=== PATIENT | male | born 1975 | race Caucasian/White ===

== ENCOUNTER 2017-03-20 06:33 | Emergency (ER) | payer BC ==
[~2017-03-20] VITALS: Ht 185.4 cm; Wt 102.1 kg
[2017-03-20 06:33] VITALS: BP 125/82; PULSE 129; RESP 16; TEMP 97.5; O2SAT 98
--- NOTE | 2017-03-20 06:33 | NUR ---
Placed in room 1. Placed on monitoring coordinator, blood pressure machine and pulse oximeter. To gown for exam. Side rails up. Report given to Kristine MAGALLANES.
--- NOTE | 2017-03-20 06:40 | NUR ---
Patient to ER C/O chest tightness since 2 am. Patient states that he has been sick for the past 2 weeks with unproductive cough and fever "on and off" for which he has been taking tylenol. Patient also C/O SOB. AAOx4, diminished lung sounds, tachycardia, skin lesions on chest, abdomen, back, extremities (Hx of psoriasis) no signs of skin infection, no signs of acute distress.
[2017-03-20] MEDS ORDERED: NACL 0.9% 1,000 ML IV ONE ×2 (06:43→06:45)
[2017-03-20] MEDS ORDERED: ASPIRIN 81 MG TAB.CHEW PO ONE (06:45)
[2017-03-20] MEDS ORDERED: PANTOPRAZOLE SODIUM 40 MG/VIAL (PROTONIX) IVP ONE (06:45)
--- NOTE | 2017-03-20 06:45 | NUR ---
# 20 gauge angiocath placed to RIGHT AC. Use of asceptic technique. Opsite placed over site. Blood return noted. Blood for lab drawn from site. Flushed with 10 cc of normal saline. No evidence of infiltration noted. Patient tolerated well.
[2017-03-20] MEDS ORDERED: ENAL10TA PO (06:53)
--- NOTE | 2017-03-20 06:53 | NUR ---
ER MD Pandya at bedside for evaluation
[2017-03-20] MEDS ORDERED: HYDR25TA4 PO (06:54)
[2017-03-20 07:01] LABS: HEMATOCRIT 42.5 % (36-54); HEMOGLOBIN 14.3 g/dL (14.0-18.0); MEAN CORPUSCULAR HEMOGLOBIN 30 pg (27-31); MEAN CORPUSCULAR HGB CONC 34 % (32-36); MEAN CORPUSCULAR VOLUME 88 fL (79.0-98.0); PLATELET COUNT (AUTO) 323 K/uL (130-430); RED BLOOD CELL COUNT(AUTO) 4.84 MIL/uL (4.2-6.2); RED CELL DISTRIBUTION WIDTH 11.6 % (9.0-15.0); WHITE BLOOD COUNT (AUTO) 20.6 K/uL (4.8-10.8)
--- NOTE | 2017-03-20 07:14 | NUR ---
RT at bedside for breathing treatment
[2017-03-20] MEDS ORDERED: IPRATROPIUM BROM 0.5 MG/2.5 ML VIAL.NEB (ATROVENT) INH ONE (07:15)
[2017-03-20] MEDS ORDERED: LORazepam 2 MG/ML VIAL (FOR ER USE) IVP ONE (07:15)
[2017-03-20] MEDS ORDERED: IPRATROPIUM/ALBUTEROL SULFATE 3 ML AMPUL.NEB INH ONE (07:15)
[2017-03-20] MEDS ORDERED: ALBUTEROL SULFATE 0.083% 2.5 MG/3 ML VIAL.NEB INH ONE (07:15)
[2017-03-20] MEDS ORDERED: METOPROLOL TARTRATE 25 MG TABLET PO ONE (07:15)
--- NOTE | 2017-03-20 07:15 | NUR ---
Car endorsed to Alec MAGALLANES via [employer].
[2017-03-20 07:24] LABS: ANION GAP 12 (5-15); CALCIUM 8.9 mg/dL (8.4-11.0); CHLORIDE 101 mmol/L (98-107); CREATININE 0.98 mg/dL (0.55-1.30); GLUCOSE 140 mg/dL (70-99); POTASSIUM 3.7 mmol/L (3.5-5.1); SODIUM SERUM 138 mmol/L (136-145); UREA NITROGEN, BLOOD 10 mg/dL (8-21)
[2017-03-20 07:25] LABS: INR 0.9 (0.80-1.20); PROTHROMBIN TIME 10.3 SECS (9.5-12.5)
[2017-03-20 07:28] LABS: GFR AFRICAN AMERICAN 109 mL/min (>90)
--- NOTE | 2017-03-20 07:30 | NUR ---
asked MD if he still wanted lopressor administed with pt's BP at 125/82. MD wanted medical collector due to pt not taking his scheduled blood pressure medication before ER visit.
[2017-03-20 07:31] LABS: ATYPICAL LYMPHOCYTES % 0 % (0-0); BAND % (MANUAL) 11 % (0-6); BASOPHILS % (MANUAL) 0 % (0-2); EOSINOPHILS % (MANUAL) 1 % (0-7); LYMPHOCYTES % (MANUAL) 4 % (20-46); MONOCYTES % (MANUAL) 3 % (0-11)
[2017-03-20 07:32] LABS: ALANINE AMINOTRANSFERASE 41 U/L (12-78); ALBUMIN 3.8 g/dL (3.4-4.8); ASPARTATE AMINOTRANSFERASE 24 U/L (10-37); TOTAL BILIRUBIN 0.6 mg/dL (0.0-1.0); TOTAL PROTEIN, SERUM 7.1 g/dL (6.4-8.3)
--- NOTE | 2017-03-20 07:54 | NUR ---
x ray to bedside
[2017-03-20] MEDS ORDERED: ACETAMINOPHEN 500 MG TABLET PO ONE (08:00)
--- NOTE | 2017-03-20 08:30 | NUR ---
Pt stable, no signs of distress noted
[2017-03-20 08:41] LABS: BILIRUBIN,URINE NEGATIVE (NEGATIVE); BLOOD, URINE NEGATIVE (NEGATIVE); CLARITY/URINE CLEAR (CLEAR); COLOR,URINE YELLOW (YELLOW); GLUCOSE,URINE NEGATIVE (NEGATIVE); KETONES,URINE NEGATIVE (NEGATIVE); LEUKOCYTE ESTERASE ,URINE NEGATIVE (NEGATIVE); NITRITE, URINE NEGATIVE (NEGATIVE); PROTEIN URINE NEGATIVE (NEGATIVE); UROBILINOGEN,URINE 0.2 (0.2-1.0)
[2017-03-20 08:49] LABS: BARBITURATE, URINE NEGATIVE (NEG <=200); BENZODIAZEPINE, URINE NEGATIVE (NEG <=150); CANNABINOID, URINE NEGATIVE (NEG <=50); COCAINE, URINE NEGATIVE (NEG <=150); METHAMPHETAMINES SCREEN,URINE NEGATIVE (NEG <=500); OPIATE, URINE NEGATIVE (NEG <=100); PHENCYCLIDINE SCREEN,URINE NEGATIVE (NEG <=25); UR TRICYCLIC ANTIDEPRESSANTS NEGATIVE (NEG <=300); URINE AMPHETAMINE NEGATIVE (NEG <=500); URINE METHADONE NEGATIVE (NEG <=200); URINE OXYCODONE SCREEN NEGATIVE (NEG <=100); URINE PROPOXYPHENE SCREEN NEGATIVE (NEG <=300)
--- NOTE | 2017-03-20 09:30 | NUR ---
pt stable, no signs of distress noted.
[2017-03-20 10:38] VITALS: BP 101/74; PULSE 94; RESP 20; TEMP 98.4; O2SAT 97
--- NOTE | 2017-03-20 10:38 | NUR ---
Patient given written and verbal discharge instructions and verbalizes understanding. ER MD discussed with patient the results and treatment provided. Patient in stable condition. ID arm band removed. IV catheter removed intact and dressing applied, no active bleeding. Rx of ATIVAN,AUGMENTIN,PROMETHAZINE W/CODEINE,ALBUTEROL given. Patient educated on pain management and to follow up with PMD. Pain Scale 0. Opportunity for questions provided and answered.
== END 2017-03-20 10:35 | disposition home or self-care (01) ==
LOC: SED 06:33
DX: J20.9 Acute bronchitis, unspecified (principal); I10 Essential (primary) hypertension; F41.9 Anxiety disorder, unspecified
CPT/HCPCS: 36415; 71010; 80053; 80307; 81003; 83605; 84484; 85007; 85027; 85379; 85610; 85730; 87040; 93005; 94640; 96361; 96365; 96375; 99285; C9113; J1956; J2060; J7030

== ENCOUNTER 2022-11-11 12:33 | Emergency (ER) | payer BC ==
[~2022-11-11] VITALS: Ht 185.4 cm; Wt 90.7 kg
[~2022-11-11 12:33] MED LIST: ENAL10TA19 PO; HYDR25TA4 PO
[2022-11-11] MEDS ORDERED: IBUP-1971 PO (15:23)
[2022-11-11] MEDS ORDERED: HYDR-3917 PO (15:23)
[2022-11-11] MEDS ORDERED: MORPHINE 4 MG INJ. 4 MG/ML VIAL IM ONE (16:30)
[2022-11-11 18:25] VITALS: BP_SYST 146
== END 2022-11-11 18:25 | disposition home or self-care (01) ==
LOC: SED 12:33
DX: S92.012A Displaced fracture of body of left calcaneus, initial encounter for closed fracture (principal); I10 Essential (primary) hypertension; Z79.899 Other long term (current) drug therapy; X50.1XXA Overexertion from prolonged static or awkward postures, initial encounter; Y93.89 Activity, other specified; Y92.89 Other specified places as the place of occurrence of the external cause; Y99.8 Other external cause status
CPT/HCPCS: 99283; 29515; 73610; 96372; J2270